=== PATIENT | male | born 1960 | race American Indian/Alaskan Native ===

== ENCOUNTER 2018-07-07 23:28 | Emergency (ER) | payer SELFPAY ==
[2018-07-08] MEDS ORDERED: NORVASC ONE (00:14)
[2018-07-08] MEDS ORDERED: NORVASC PO ONE (00:26)
--- NOTE | 2018-07-08 00:26 | Emergency Department Report ---
ED General Adult HPI - General Chief complaint: High BP Stated complaint: HBP Time Seen by Provider: 07/08/18 00:01 Source: patient Mode of arrival: Ambulatory Limitations: No Limitations - History of Present Illness Initial comments: Patient is a 57-year-old male up since emergency room with complaints of high blood pressure. Patient states blood pressure was 188/103 at home just prior to arrival. Patient denies chest pain. Patient denies shortness of breath. Patient denies headache. Patient denies blurry vision. Patient denies dizziness. Patient denies any physical complaints. Patient states he has past medical history of hypertension diabetes. Patient states he blood pressure has been controlled and about a year ago his primary care to come off his blood pressure medications. Patient states takes metformin for his diabetes. -: Sudden Consistency: constant Improves with: medication, rest Worsens with: movement Associated Symptoms: denies other symptoms. denies: confusion, chest pain, cough, diaphoresis, fever/chills, headaches, loss of appetite, malaise, nausea/vomiting, rash, seizure, shortness of breath, syncope, weakness Treatments Prior to Arrival: none - Related Data Previous Rx's Medication Instructions Recorded Last Taken Type Amlodipine Besylate [Norvasc] 5 mg PO DAILY 20 Days #20 tablet 07/08/18 Unknown Rx Allergies Allergy/AdvReac Type Severity Reaction Status Date / Time No Known Allergies Allergy Unverified 07/07/18 23:47 ED Review of Systems ROS: Stated complaint: HBP Other details as noted in HPI Constitutional: denies: chills, fever Eyes: denies: eye pain, eye discharge, vision change ENT: denies: ear pain, throat pain Respiratory: denies: cough, shortness of breath, wheezing Cardiovascular: denies: chest pain, palpitations Endocrine: no symptoms reported Gastrointestinal: denies: abdominal pain, nausea, diarrhea Genitourinary: denies: urgency, dysuria Musculoskeletal: denies: back pain, joint swelling, arthralgia Skin: denies: rash, lesions Neurological: denies: headache, weakness, paresthesias Psychiatric: denies: anxiety, depression Hematological/Lymphatic: denies: easy bleeding, easy bruising ED Past Medical Hx - Past Medical History Previous Medical History?: Yes Hx Hypertension: Yes Hx Diabetes: Yes - Surgical History Past Surgical History?: Yes Additional Surgical History: eye - Family History Family history: no significant - Social History Smoking Status: Current Every Day Smoker Substance Use Type: None - Medications Home Medications: Home Medications Medication Instructions Recorded Confirmed Last Taken Type Amlodipine Besylate [Norvasc] 5 mg PO DAILY 20 Days #20 tablet 07/08/18 Unknown Rx ED Physical Exam - General Limitations: No Limitations General appearance: alert, in no apparent distress - Head Head exam: Present: atraumatic, normocephalic - Eye Eye exam: Present: normal appearance - ENT ENT exam: Present: mucous membranes moist - Neck Neck exam: Present: normal inspection - Respiratory Respiratory exam: Present: normal lung sounds bilaterally. Absent: respiratory distress - Cardiovascular Cardiovascular Exam: Present: regular rate, normal rhythm. Absent: systolic murmur, diastolic murmur, rubs, gallop - GI/Abdominal GI/Abdominal exam: Present: soft, normal bowel sounds - Rectal Rectal exam: Present: deferred - Extremities Exam Extremities exam: Present: normal inspection - Back Exam Back exam: Present: normal inspection - Neurological Exam Neurological exam: Present: alert, oriented X3 - Psychiatric Psychiatric exam: Present: normal affect, normal mood - Skin Skin exam: Present: warm, dry, intact, normal color. Absent: rash ED Course Vital Signs 07/08/18 07/08/18 07/08/18 00:10 00:15 01:17 Pulse Rate 78 78 Respiratory 17 18 Rate Blood Pressure 189/104 185/96 O2 Sat by Pulse 100 Oximetry 07/08/18 07/08/18 07/08/18 01:30 01:53 02:00 Pulse Rate Respiratory Rate Blood Pressure 192/100 197/104 179/103 O2 Sat by Pulse Oximetry 07/08/18 07/08/18 07/08/18 02:15 02:30 02:45 Pulse Rate Respiratory Rate Blood Pressure 169/96 160/90 173/83 O2 Sat by Pulse Oximetry - Reevaluation(s) Reevaluation #1: Blood pressure still high at 197/104. Patient will be given clonidine 0.1 mg 07/08/18 01:55 Patient's blood pressure has improved. All vital signs and labs reviewed. Discussed all results with patient. Discussed plan of care patient. Patient usually plan of care. Patient will be discharged home. Patient stable at discharge. Patient given discharge instructions. Patient given return to ER instructions. Patient voiced understanding of all instructions 07/08/18 02:51 ED Medical Decision Making - Lab Data Result diagrams: 07/08/18 00:34 07/08/18 00:34 - Medical Decision Making Patient is a 57-year-old female that presents emergency room with complaints of elevated blood pressure. Patient cannot have blood pressure. Patient given blood pressure medications. Patient's blood pressure responded well. Patient will be given a prescription for Norvasc. Patient given discharge instructions. Patient given dietary instructions. - Differential Diagnosis high blood pressure. Noncompliance. Critical care attestation.: If time is entered above; I have spent that time in minutes in the direct care of this critically ill patient, excluding procedure time. ED Disposition Clinical Impression: Elevated blood pressure reading Hypertension Qualifiers: Hypertension type: essential hypertension Qualified Code(s): I10 - Essential (primary) hypertension Disposition: TO HOME OR SELFCARE Is pt being admited?: No Does the pt Need Aspirin: No Condition: Stable Instructions: Heart Healthy Diet (ED), How to Take a Blood Pressure (ED), DASH Eating Plan (ED), Low Sodium Diet (ED), Hypertension (ED) Additional Instructions: Patient to follow up with primary care in 2-3 days. Patient to return to ER if condition worsens. Patient to take meds as directed. Patient increase water. Patient eat heart healthy, low salt diet. Patient to check blood pressure and keep a log and take log to his primary care. Prescriptions: Amlodipine Besylate [Norvasc] 5 mg PO DAILY 20 Days #20 tablet Referrals: SALOME WOLFF MD [Primary Care Provider] - 2-3 Days Time of Disposition: 02:54
[2018-07-08 01:03] LABS: Hematocrit 46.1 % (35.5-45.6); Hemoglobin 15.3 gm/dl (11.8-15.2); Mean Corpuscular HGB Conc 33 % (32-34); Mean Corpuscular Volume 93 fl (84-94); Platelet Count 153 K/mm3 (140-440); Red Blood Count 4.97 M/mm3 (3.65-5.03); Red Cell Distribution Width 12.8 % (13.2-15.2)
[2018-07-08 01:21] LABS: Albumin 4.5 g/dL (3.9-5); Calcium 9.6 mg/dL (8.4-10.2)
[2018-07-08] MEDS ORDERED: CATAPRES PO ONE (01:55)
[2018-07-08] MEDS ORDERED: CATAPRES ONE (01:58)
[2018-07-08 02:49] VITALS: BP 173/83
== END 2018-07-08 03:19 | disposition home or self-care (01) ==
LOC: ED 23:28
DX: I10 Essential (primary) hypertension (principal); E11.9 Type 2 diabetes mellitus without complications; F17.200 Nicotine dependence, unspecified, uncomplicated
CPT/HCPCS: 36415; 80053; 85027